=== PATIENT | female | born 1990 | race Caucasian/White ===

== ENCOUNTER 2018-09-04 15:56 | Emergency (ER) | payer MEDICAID ==
[~2018-09-04] VITALS: Ht 170.2 cm; Wt 165.0 kg
[~2018-09-04 15:56] MED LIST: ASPI81TA50 PO
[2018-09-04 16:45] LABS: ALBUMIN 3.8 g/dL (3.4-5.0); ANION GAP 8 mmol/L (5-15); CHLORIDE 108 mmol/L (98-107); CREATININE 0.98 mg/dL (0.55-1.02)
[2018-09-04 16:49] LABS: TROPONIN I < 0.015 ng/mL (0.000-0.045)
--- NOTE | 2018-09-04 16:54 | NUR ---
WELDER APPRENTICE ARC: PT TO ROOM FROM [facility]
[2018-09-04 16:59] LABS: BASOPHILS # (AUTO) 0.06 x10^3/uL (0-0.1); BASOPHILS % (AUTO) 1 % (0-1); EOSINOPHILS # (AUTO) 0.17 x10^3/uL (0-0.4); EOSINOPHILS % (AUTO) 2 % (1-7); LYMPHOCYTES # (AUTO) 2.08 x10^3/uL (1-3.4); LYMPHOCYTES % (AUTO) 30 % (22-44); MD NO; MEAN CORPUSCULAR VOLUME 88.2 fL (80-100); MEAN PLATELET VOLUME 8.4 fL (7.4-10.4); MONOCYTES # (AUTO) 0.98 x10^3/uL (0.2-0.8); MONOCYTES % (AUTO) 14 % (2-9); NEUTROPHILS # (AUTO) 3.55 x10^3/uL (1.8-6.8); NEUTROPHILS % (AUTO) 52 % (42-75); PLATELET COUNT 267 x10^3/uL (130-400); RED BLOOD COUNT 5.86 x10^6/uL (3.82-5.3); RED CELL DISTRIBUTION WIDTH 13.7 % (9.6-15.2)
--- NOTE | 2018-09-04 17:08 | NUR ---
FIRST CONTACT WITH PATIENT. 27 Y/O FEMALE PRESENTS TO ED WITH C/O COUGH CONGESTIONS X 1 WEEK. "I'VE BEEN SICK FOR ABOUT A WEEK. THE LAST TIME I WAS SICK LIKE THIS I WAS IN HEART FAILURE. I'VE HAD A LOT OF SURGERIES ON MY HEART AND CARDIAC HISTORY. I JUST WANT TO MAKE SURE. I HAVE SOME CONSTANT CP. IT STARTED YESTERDAY. THE PAIN GOT WORSE TODAY SO I CAME IN." NO ACUTE DISTRESS NOTED. NO C/O N/V/D, TRAUMA, SYNCOPE. PT PLACED ON CONT PULSE OX, NIBP, SPORTS CARTOONIST.
[2018-09-04] MEDS ORDERED: ALBUTEROL/IPRATROPIUM 2.5MG/0.5MG, 3 ML NPPB ONE (18:00)
[2018-09-04] MEDS ORDERED: ALBUTEROL/IPRATROPIUM 2.5MG/0.5MG, 3 ML ONE (18:01)
[2018-09-04 18:17] LABS: INTERNATIONAL NORMALIZED RATIO 1.09 (0.93-1.1); PROTHROMBIN TIME 11.4 Seconds (9.6-11.5)
[2018-09-04 18:31] VITALS: BP 123/85
--- NOTE | 2018-09-04 18:31 | NUR ---
PT RESTING ON GURNEY. PT FEEL BETTER AFTER NEBULIZER TREATMENT. NO ACUTE DISTRESS NOTED. VSS
--- NOTE | 2018-09-04 19:16 | NUR ---
BEDSIDE REPORT TO NORMA SIMON.
--- NOTE | 2018-09-04 19:20 | NUR ---
Patient/Caregiver given discharge instructions and they have confirmed that they understand the instructions. Patient ambulatory with steady gait.
== END 2018-09-04 19:21 | disposition home or self-care (01) ==
LOC: ED 19:15
DX: J06.9 Acute upper respiratory infection, unspecified (principal)
CPT/HCPCS: 36415; 71046; 80048; 82040; 84484; 85025; 85610; 93005; 94640; 99284; J7620

== ENCOUNTER 2019-01-28 20:32 | Emergency (ER) | payer MEDICAID ==
[~2019-01-28] VITALS: Ht 170.2 cm; Wt 169.4 kg
[2019-01-29 00:08] VITALS: BP 98/68
== END 2019-01-29 02:21 | disposition home or self-care (01) ==
LOC: ED 01-29 02:16
DX: R07.2 Precordial pain (principal)
CPT/HCPCS: 36415; 71046; 71275; 80048; 82040; 83880; 84484; 85025; 85379; 85610; 93005; 96374; 96375; 96376; 99284; J2270; J2405; Q9967

== ENCOUNTER 2019-05-11 16:59 | Emergency (ER) | payer MEDICAID ==
[~2019-05-11] VITALS: Ht 170.2 cm; Wt 171.0 kg
[~2019-05-11 16:59] MED LIST changes: +AMIT10TA PO; +ATOR10TA9 PO; +WARF1TAB74 PO
--- NOTE | 2019-05-11 18:50 | NUR ---
WORKERS COMPENSATION ANALYST: PT TO ROOM FROM LOBBY AT THIS TIME. NADN. AMBULATORY WITH STEADY GAIT
[2019-05-11 18:59] LABS: BASOPHILS # (AUTO) 0.05 x10^3/uL (0-0.1); BASOPHILS % (AUTO) 1 % (0-1); EOSINOPHILS # (AUTO) 0.19 x10^3/uL (0-0.4); EOSINOPHILS % (AUTO) 2 % (1-7); LYMPHOCYTES # (AUTO) 1.81 x10^3/uL (1-3.4); LYMPHOCYTES % (AUTO) 20 % (22-44); MD NO; MEAN CORPUSCULAR HEMOGLOBIN 30.3 pg (27.0-34.8); MEAN CORPUSCULAR HGB CONC 33.2 g/dL (32.4-35.8); MEAN CORPUSCULAR VOLUME 91.3 fL (80-100); MEAN PLATELET VOLUME 8.4 fL (7.4-10.4); MONOCYTES # (AUTO) 0.56 x10^3/uL (0.2-0.8); MONOCYTES % (AUTO) 6 % (2-9); NEUTROPHILS # (AUTO) 6.26 x10^3/uL (1.8-6.8); NEUTROPHILS % (AUTO) 71 % (42-75); PLATELET COUNT 288 x10^3/uL (130-400); RED BLOOD COUNT 5.48 x10^6/uL (3.82-5.3); RED CELL DISTRIBUTION WIDTH 13.3 % (9.6-15.2)
--- NOTE | 2019-05-11 19:03 | NUR ---
FULLY MONITORED. PACED.
[2019-05-11 19:10] LABS: ALANINE AMINOTRANSFERASE 64 U/L (12-78); ALBUMIN 3.5 g/dL (3.4-5.0); ANION GAP 8 mmol/L (5-15); CALCIUM 8.8 mg/dL (8.5-10.1); CHLORIDE 106 mmol/L (98-107); CREATININE 0.89 mg/dL (0.55-1.02)
[2019-05-11 19:14] LABS: ALKALINE PHOSPHATASE 64 U/L (45-117); BILIRUBIN,TOTAL 0.6 mg/dL (0.2-1.0); TROPONIN I < 0.015 ng/mL (0.000-0.045)
--- NOTE | 2019-05-11 19:18 | NUR ---
MECHANICAL VALVE AND PACER, ON CHR ANTICOAGULATION, COUMADIN.
[2019-05-11 19:22] LABS: INTERNATIONAL NORMALIZED RATIO 5.5 (0.93-1.1); PROTHROMBIN TIME 54.1 Seconds (9.6-11.5)
--- NOTE | 2019-05-11 19:35 | NUR ---
PT REQUESTING PAIN MEDS. ERP NOTIFIED.
[2019-05-11] MEDS ORDERED: HYDROcodone/APAP 5/325 TABLET ONE (19:45)
[2019-05-11] MEDS ORDERED: HYDROcodone/APAP 5/325 TABLET PO ONE (20:00)
[2019-05-11 20:03] VITALS: BP 113/60
== END 2019-05-11 20:07 | disposition home or self-care (01) ==
LOC: ED 20:00
DX: R07.89 Other chest pain (principal); Z79.01 Long term (current) use of anticoagulants
CPT/HCPCS: 36415; 71046; 80053; 83880; 84443; 84484; 85025; 85610; 85730; 93005; 99284

== ENCOUNTER 2019-05-13 20:06 | Observation (INO) | payer MEDICAID ==
[~2019-05-13] VITALS: Ht 170.2 cm; Wt 170.0 kg
[2019-05-13 21:46] LABS: BASOPHILS # (AUTO) 0.13 x10^3/uL (0-0.1); BASOPHILS % (AUTO) 1 % (0-1); EOSINOPHILS % (AUTO) 3 % (1-7); LYMPHOCYTES # (AUTO) 2.66 x10^3/uL (1-3.4); LYMPHOCYTES % (AUTO) 28 % (22-44); MD NO; MEAN CORPUSCULAR HGB CONC 34.3 g/dL (32.4-35.8); MEAN CORPUSCULAR VOLUME 90.3 fL (80-100); MEAN PLATELET VOLUME 8.2 fL (7.4-10.4); MONOCYTES # (AUTO) 0.68 x10^3/uL (0.2-0.8); MONOCYTES % (AUTO) 7 % (2-9); NEUTROPHILS # (AUTO) 5.74 x10^3/uL (1.8-6.8); NEUTROPHILS % (AUTO) 60 % (42-75); PLATELET COUNT 284 x10^3/uL (130-400); RED CELL DISTRIBUTION WIDTH 13.1 % (9.6-15.2)
[2019-05-13 21:55] LABS: INTERNATIONAL NORMALIZED RATIO 1.43 (0.93-1.1); PROTHROMBIN TIME 14.8 Seconds (9.6-11.5)
[2019-05-13 21:59] LABS: ALBUMIN 3.3 g/dL (3.4-5.0); ANION GAP 5 mmol/L (5-15); CALCIUM 9.3 mg/dL (8.5-10.1); CHLORIDE 109 mmol/L (98-107)
[2019-05-13 22:04] LABS: TROPONIN I < 0.015 ng/mL (0.000-0.045)
[2019-05-13] MEDS ORDERED: OMNIPAQUE 350 MG/ML, 100ML BOTTLE ONE (22:43)
[2019-05-13] MEDS ORDERED: MORPHINE SULFATE 4 MG/ML, 1ML ONE (23:51)
[2019-05-13] MEDS ORDERED: ONDANSETRON 2MG/ML, 2ML ONE (23:52)
[2019-05-14] MEDS ORDERED: MORPHINE SULFATE 4 MG/ML, 1ML IVPush PRN
[2019-05-14] MEDS ORDERED: ONDANSETRON 2MG/ML, 2ML IVPush PRN
[2019-05-14] MEDS ORDERED: WARF7.5T46 PO (00:01)
[2019-05-14] MEDS ORDERED: IBUPROFEN 600 MG TABLET PO PRN (00:30)
[2019-05-14] MEDS: AMITRIPTYLINE 10 MG TABLET PO SCH ×2 (01:47→22:00)
[2019-05-14] MEDS: ACETAMINOPHEN 325 MG TABLET PO PRN ×3 (01:49→19:09)
[2019-05-14 01:54] VITALS: BP 118/82
[2019-05-14] MEDS ORDERED: KETOROLAC 30 MG/1 ML IVPush ONE (03:00)
[2019-05-14 03:46] LABS: INTERNATIONAL NORMALIZED RATIO 1.3 (0.93-1.1); PROTHROMBIN TIME 13.5 Seconds (9.6-11.5)
[2019-05-14 04:02] LABS: TROPONIN I < 0.015 ng/mL (0.000-0.045)
[2019-05-14 06:36] VITALS: BP 103/66
[2019-05-14] MEDS ORDERED: TRAM50TA2 PO (12:13)
[2019-05-14 12:14] VITALS: BP 104/68
[2019-05-14] MEDS ORDERED: WARFARIN 7.5 MG TABLET PO-COUM ONE (18:00)
[2019-05-14 18:47] VITALS: BP 170/107
[2019-05-14 18:52] VITALS: BP 145/100
[2019-05-14 20:45] VITALS: BP 170/95
[2019-05-14] MEDS: LIDODERM 5% PATCH TD SCH (21:00)
[2019-05-15 01:33] VITALS: BP 114/68
[2019-05-15 07:46] LABS: INTERNATIONAL NORMALIZED RATIO 1.18 (0.93-1.1); PROTHROMBIN TIME 12.3 Seconds (9.6-11.5)
[2019-05-15 08:15] VITALS: BP 118/84
[2019-05-15] MEDS: POLYETHYLENE GLYCOL 17 GM PACKET PO SCH (10:23)
[2019-05-15] MEDS ORDERED: BISACODYL 5 MG EC TABLET PO PRN (10:30)
[2019-05-15] MEDS ORDERED: SENNA/DOCUSATE TABLET PO PRN (10:30)
[2019-05-15] MEDS: ONDANSETRON ODT 4 MG PO PRN ×2 (11:06→20:46)
[2019-05-15 12:55] VITALS: BP 140/97
[2019-05-15] MEDS ORDERED: BUTALB/APAP/CAFFEINE 50MG/325MG/40MG PO ONE (18:00)
[2019-05-15] MEDS ORDERED: WARFARIN 7.5 MG TABLET PO-COUM ONE (18:00)
[2019-05-15 18:47] VITALS: BP 137/99
[2019-05-15] MEDS: AMITRIPTYLINE 10 MG TABLET PO SCH (20:02)
[2019-05-15] MEDS: LIDODERM 5% PATCH TD SCH (20:03)
[2019-05-16 02:25] VITALS: BP 106/70
[2019-05-16 08:28] VITALS: BP 127/91
[2019-05-16] MEDS ORDERED: REGADENOSON 0.4 MG/5 ML SYRINGE ONE (08:42)
[2019-05-16] MEDS: ONDANSETRON ODT 4 MG PO PRN (11:36)
[2019-05-16 11:43] VITALS: BP 146/102
[2019-05-16 12:24] VITALS: BP 132/96
[2019-05-16] MEDS: POLYETHYLENE GLYCOL 17 GM PACKET PO SCH (12:37)
[2019-05-16 12:55] LABS: INTERNATIONAL NORMALIZED RATIO 2.01 (0.93-1.1); PROTHROMBIN TIME 20.5 Seconds (9.6-11.5)
[2019-05-16] MEDS ORDERED: SPIRONOLACTONE 25 MG TABLET PO SCH (14:00)
[2019-05-16] MEDS ORDERED: HYDROcodone/APAP 5/325 TABLET PO PRN (14:30)
[2019-05-16] MEDS ORDERED: DULOXETINE 20 MG CAPSULE.DR PO SCH (14:30)
[2019-05-16] MEDS ORDERED: PROCHLORPERAZINE 5 MG/ML, 2ML IM PRN (14:30)
[2019-05-16] MEDS: ACETAMINOPHEN 325 MG TABLET PO PRN (15:52)
[2019-05-16] MEDS ORDERED: LISI5TAB7 PO (17:07)
[2019-05-16] MEDS ORDERED: CARV3.1212 PO (17:07)
[2019-05-16] MEDS ORDERED: WARFARIN 7.5 MG TABLET PO-COUM ONE (18:00)
[2019-05-16] MEDS ORDERED: CARVEDILOL 3.125 MG TABLET PO SCH (18:00)
[2019-05-16] MEDS ORDERED: FLU VACC QS2019-20 36MOS UP/PF 0.5 ML IM-VACC ONE (18:00)
[2019-05-17] MEDS ORDERED: LISINOPRIL 5 MG TABLET PO SCH (09:00)
== END 2019-05-16 18:40 | disposition home or self-care (01) ==
LOC: ED 23:59 → INTOOBSV 05-14 00:25 → EDIP 05-14 00:25 → 5SO 05-14 00:32
PROVIDERS: ADMIT Student in an Organized Health Care Education/Training Program; ATTEND Student in an Organized Health Care Education/Training Program
DX: R07.89 Other chest pain (principal); I50.23 Acute on chronic systolic (congestive) heart failure; I42.8 Other cardiomyopathies; I50.22 Chronic systolic (congestive) heart failure; E66.9 Obesity, unspecified; Q23.0 Congenital stenosis of aortic valve; F32.9 Major depressive disorder, single episode, unspecified; F41.9 Anxiety disorder, unspecified; I44.7 Left bundle-branch block, unspecified; Z79.01 Long term (current) use of anticoagulants; I42.9 Cardiomyopathy, unspecified; Z87.891 Personal history of nicotine dependence; Z95.0 Presence of cardiac pacemaker; Z95.2 Presence of prosthetic heart valve; Z68.43 Body mass index [BMI] 50.0-59.9, adult; Z23 Encounter for immunization; Z79.899 Other long term (current) drug therapy; Z79.82 Long term (current) use of aspirin
CPT/HCPCS: 36415; 71275; 78452; 80048; 82040; 84484; 85025; 85610; 90471; 90686; 93005; 93017; 96372; 96374; 96375; 99285; A9502; C8929; C9898; G0378; J0780; J1885; J2270; J2405; J2785; Q0162; Q9957; Q9967

== ENCOUNTER 2019-12-01 05:50 | Emergency (ER) | payer MEDICAID ==
[~2019-12-01] VITALS: Ht 170.2 cm; Wt 157.0 kg
[~2019-12-01 05:50] MED LIST changes: +CARV3.1212 PO; +LISI5TAB7 PO; +TRAM50TA2 PO; +WARF7.5T46 PO
[2019-12-01] MEDS ORDERED: OMEP-110 PO (06:07)
[2019-12-01] MEDS ORDERED: DULO60CA56 PO (06:07)
[2019-12-01] MEDS ORDERED: CARV3.122 PO (06:11)
[2019-12-01] MEDS ORDERED: GABA600T7 PO (06:11)
[2019-12-01] MEDS ORDERED: LISI2.5T PO (06:11)
--- NOTE | 2019-12-01 06:11 | NUR ---
pt bib remsa for CP and palpations. pt reports palpations beginning last night and says that "sometimes happen and go away but today they didnt" then it " turned into chest pain this morning about 5 am and it woke me up." PULSES 2+, GROSS NEURO INTACT, ANOx4, MAEx4 BUT STATES SHE FEELS FATIGUED, P/W/D, NAD, RESP WNL, VSS, WCTM. call light on lap 4 mg zofran and 100 mcg fentanyl kerrie ESPINOZA MD AT FOR EVAL AND POC
[2019-12-01] MEDS ORDERED: ASPIRIN 81 MG TABLET CHEW ONE (06:26)
[2019-12-01] MEDS ORDERED: MORPHINE SULFATE 4 MG/ML, 1ML ONE ×2 (06:26→07:36)
[2019-12-01] MEDS ORDERED: ONDANSETRON 2MG/ML, 2ML ONE (06:26)
[2019-12-01] MEDS: MORPHINE SULFATE 4 MG/ML, 1ML IVPush PRN ×2 (06:29→07:39)
[2019-12-01] MEDS ORDERED: ONDANSETRON 2MG/ML, 2ML IVPush ONE (06:30)
[2019-12-01] MEDS ORDERED: ASPIRIN 81 MG TABLET CHEW PO ONE (06:30)
[2019-12-01 06:45] LABS: BASOPHILS # (AUTO) 0.12 x10^3/uL (0-0.1); BASOPHILS % (AUTO) 2 % (0-1); EOSINOPHILS # (AUTO) 0.48 x10^3/uL (0-0.4); EOSINOPHILS % (AUTO) 6 % (1-7); LYMPHOCYTES # (AUTO) 1.97 x10^3/uL (1-3.4); LYMPHOCYTES % (AUTO) 25 % (22-44); MD NO; MEAN CORPUSCULAR HEMOGLOBIN 30.4 pg (27.0-34.8); MEAN CORPUSCULAR HGB CONC 33.5 g/dL (32.4-35.8); MEAN CORPUSCULAR VOLUME 90.8 fL (80-100); MEAN PLATELET VOLUME 8.4 fL (7.4-10.4); MONOCYTES # (AUTO) 0.73 x10^3/uL (0.2-0.8); MONOCYTES % (AUTO) 9 % (2-9); NEUTROPHILS # (AUTO) 4.44 x10^3/uL (1.8-6.8); NEUTROPHILS % (AUTO) 57 % (42-75); PLATELET COUNT 244 x10^3/uL (130-400); RED BLOOD COUNT 4.92 x10^6/uL (3.82-5.3); RED CELL DISTRIBUTION WIDTH 13.5 % (9.6-15.2)
--- NOTE | 2019-12-01 06:48 | NUR ---
pt resting in gurney, given warm blankets for comfort, call light on lap, NAD, RESP WNL, ABC intact, P/W/D, medicated per AUG. waiting for labs and rads results. WCTM.
[2019-12-01 06:54] LABS: INTERNATIONAL NORMALIZED RATIO 1.21 (0.93-1.1); PROTHROMBIN TIME 12.9 Seconds (9.6-11.5)
[2019-12-01 06:56] LABS: ALANINE AMINOTRANSFERASE 23 U/L (12-78); ANION GAP 9 mmol/L (5-15); CALCIUM 8.1 mg/dL (8.5-10.1); CHLORIDE 109 mmol/L (98-107); CREATININE 0.82 mg/dL (0.55-1.02)
--- NOTE | 2019-12-01 06:58 | NUR ---
Bedside report to Rohit RN, pt care transferred at this time.
--- NOTE | 2019-12-01 06:59 | NUR ---
Bedside report to Rohit RN, pt care transferred at this time.
[2019-12-01 07:01] LABS: ALKALINE PHOSPHATASE 58 U/L (45-117); BILIRUBIN,TOTAL 0.8 mg/dL (0.2-1.0); TOTAL PROTEIN 6.9 g/dL (6.4-8.2); TROPONIN I < 0.015 ng/mL (0.000-0.045)
--- NOTE | 2019-12-01 07:42 | NUR ---
PT MEDICATED WITH ORDERED MEDS FOR PAIN. VSS AT THIS TIME.
--- NOTE | 2019-12-01 08:57 | NUR ---
PT RETURNING TO ROOM FROM CTA.
[2019-12-01] MEDS ORDERED: OMNIPAQUE 350 MG/ML, 100ML BOTTLE ONE (09:02)
[2019-12-01] MEDS ORDERED: KETOROLAC 30 MG/1 ML IVPush ONE (10:30)
[2019-12-01] MEDS ORDERED: KETOROLAC 30 MG/1 ML ONE (10:35)
--- NOTE | 2019-12-01 10:44 | NUR ---
pt medicated for left sided chest pain with ordered med. will continue to monitor. pt resting calmly in bed, call light within reach.
[2019-12-01 10:48] LABS: TROPONIN I < 0.015 ng/mL (0.000-0.045)
--- NOTE | 2019-12-01 11:21 | NUR ---
pt resting calmly in bed. no stated complaints at this time, all test results back. pt up for recheck.
[2019-12-01 11:56] VITALS: BP 123/82
== END 2019-12-01 11:59 | disposition home or self-care (01) ==
LOC: ED 06:20
DX: R07.2 Precordial pain (principal); R00.2 Palpitations; Z95.0 Presence of cardiac pacemaker
CPT/HCPCS: 36415; 71045; 71275; 80053; 83880; 84484; 84703; 85025; 85610; 93005; 96374; 96375; 96376; 99285; J1885; J2270; Q9967

== ENCOUNTER 2019-12-04 09:31 | Emergency (ER) | payer MEDICAID ==
[~2019-12-04] VITALS: Ht 170.2 cm; Wt 165.0 kg
[~2019-12-04 09:31] MED LIST changes: +CARV3.122 PO; +DULO60CA56 PO; +GABA600T7 PO; +LISI2.5T PO; +OMEP-110 PO
--- NOTE | 2019-12-04 09:38 | NUR ---
THIS RN PRESENT DURING EKG PROCEDURE. PT TOLERATED WITH NO COMPLICATIONS.
[2019-12-04] MEDS ORDERED: OXYcodone 5 MG/5 ML ORAL.SOL UDC PO ONE (10:00)
--- NOTE | 2019-12-04 10:00 | NUR ---
pt has co of shoulder abdomen and chest pain, was here recently for same co, pt was given medications and had no relief. tender to palpiation. pt not in distress. resp even and unlabored. denies cough
[2019-12-04] MEDS ORDERED: OXYcodone 5 MG/5 ML ORAL.SOL UDC ONE (10:04)
--- NOTE | 2019-12-04 10:15 | NUR ---
medicated for pain
[2019-12-04 10:16] LABS: BASOPHILS # (AUTO) 0.05 x10^3/uL (0-0.1); BASOPHILS % (AUTO) 1 % (0-1); EOSINOPHILS # (AUTO) 0.49 x10^3/uL (0-0.4); EOSINOPHILS % (AUTO) 7 % (1-7); LYMPHOCYTES # (AUTO) 1.64 x10^3/uL (1-3.4); LYMPHOCYTES % (AUTO) 25 % (22-44); MD NO; MEAN CORPUSCULAR HEMOGLOBIN 30.3 pg (27.0-34.8); MEAN CORPUSCULAR HGB CONC 33.4 g/dL (32.4-35.8); MEAN CORPUSCULAR VOLUME 90.8 fL (80-100); MEAN PLATELET VOLUME 8.2 fL (7.4-10.4); MONOCYTES # (AUTO) 0.55 x10^3/uL (0.2-0.8); MONOCYTES % (AUTO) 8 % (2-9); NEUTROPHILS # (AUTO) 3.92 x10^3/uL (1.8-6.8); NEUTROPHILS % (AUTO) 59 % (42-75); PLATELET COUNT 227 x10^3/uL (130-400); RED BLOOD COUNT 4.83 x10^6/uL (3.82-5.3)
[2019-12-04 10:25] LABS: INTERNATIONAL NORMALIZED RATIO 1.17 (0.93-1.1); PROTHROMBIN TIME 12.4 Seconds (9.6-11.5)
[2019-12-04 10:27] LABS: ALANINE AMINOTRANSFERASE 22 U/L (12-78); ANION GAP 8 mmol/L (5-15); CALCIUM 8.3 mg/dL (8.5-10.1); CHLORIDE 113 mmol/L (98-107); CREATININE 0.82 mg/dL (0.55-1.02)
[2019-12-04 10:32] LABS: ALKALINE PHOSPHATASE 59 U/L (45-117); BILIRUBIN,TOTAL 0.8 mg/dL (0.2-1.0); TOTAL PROTEIN 6.8 g/dL (6.4-8.2); TROPONIN I < 0.015 ng/mL (0.000-0.045)
--- NOTE | 2019-12-04 10:53 | NUR ---
pt in imaging
--- NOTE | 2019-12-04 11:04 | NUR ---
PT BACK IN ROOM. VSS. STATES PAIN IS BETTER AFTER MEDICATIONS
[2019-12-04] MEDS ORDERED: WARFARIN 10 MG TABLET PO-COUM ONE (11:30)
--- NOTE | 2019-12-04 12:00 | NUR ---
PLAN FOR DC. ORDERED MEDS FROM PHARMACY
--- NOTE | 2019-12-04 12:29 | NUR ---
PHARMACY TO MAKE UP LOVENOX INJECTION. NOT SUPPLIED IN [employer]
[2019-12-04] MEDS ORDERED: ENOXAPARIN 80 MG/0.8 ML SQ ONE (12:30)
[2019-12-04 12:39] VITALS: BP 118/69
--- NOTE | 2019-12-04 12:46 | NUR ---
MEDICATED PER ORDERS. Patient/Caregiver given discharge instructions and they have confirmed that they understand the instructions. Patient ambulatory with steady gait.
== END 2019-12-04 12:53 | disposition home or self-care (01) ==
LOC: ED 10:20
DX: R07.89 Other chest pain (principal); R89.8 Other abnormal findings in specimens from other organs, systems and tissues; R06.02 Shortness of breath; R11.0 Nausea; R94.31 Abnormal electrocardiogram [ECG] [EKG]; Z95.0 Presence of cardiac pacemaker
CPT/HCPCS: 36415; 74022; 80053; 83690; 84484; 84703; 85025; 85610; 93005; 96372; 99285; J1650

== ENCOUNTER 2019-12-07 06:58 | Observation (INO) | payer MEDICAID ==
[~2019-12-07] VITALS: Ht 170.2 cm; Wt 165.0 kg
--- NOTE | 2019-12-07 07:06 | NUR ---
THIS RN PRESENT DURING EKG PROCEDURE. PT TOLERATED WITH NO COMPLICATIONS
--- NOTE | 2019-12-07 07:20 | NUR ---
THIS IS A 29 YO F W/ C/O SHARP EPIGASTRIC/ STERNAL CP X1 WEEK. PT REPORTS SHE HAS HAD A SIMILAR PAIN SINCE APRIL WHEN SHE WAS ADMITTED, HAS NOT FOLLOWED UP W/ CARDIOLOGY SINCE APRIL. PT REPORT HX OF PACEMAKER, AORTIC STENT AND CHF. PT REPORTS PAIN WORSE WHILE LAYING DOWN. PT ALSO REPORTS NEW ONSET OF LEFT LEG EDEMA. PT AMBULATED TO THE ROOM W/ A STEADY GAIT. PT CONNECTED TO ALL MONITORING, VSS. VPACED ON THE MONITOR. NADN. CALL LIGHT IN REACH. DINO DELGADO AT BEDSIDE FOR EVAL.
[2019-12-07] MEDS ORDERED: ASPIRIN 81 MG TABLET CHEW PO ONE (07:30)
[2019-12-07] MEDS ORDERED: SODIUM CHLORIDE FLUSH 10ML SYR IVF ONE (07:30)
[2019-12-07] MEDS ORDERED: ONDANSETRON 2MG/ML, 2ML IVPush ONE (07:30)
[2019-12-07] MEDS ORDERED: MORPHINE SULFATE 4 MG/ML, 1ML ONE ×2 (07:31→09:22)
[2019-12-07] MEDS ORDERED: ONDANSETRON 2MG/ML, 2ML ONE (07:31)
[2019-12-07] MEDS: MORPHINE SULFATE 4 MG/ML, 1ML IVPush PRN ×2 (07:50→09:24)
[2019-12-07] MEDS ORDERED: ASPIRIN 81 MG TABLET CHEW ONE (07:57)
--- NOTE | 2019-12-07 08:01 | NUR ---
PIV STARTED, LABS DRAWN. PT MEDICATED PER EMAR. VSS. PT AMBULATED TO THE BR W/ A STEADY GAIT. URINE CUP PROVIDED.
--- NOTE | 2019-12-07 08:10 | NUR ---
US IN ROOM.
[2019-12-07 08:14] LABS: BASOPHILS # (AUTO) 0.04 x10^3/uL (0-0.1); BASOPHILS % (AUTO) 1 % (0-1); EOSINOPHILS # (AUTO) 0.64 x10^3/uL (0-0.4); EOSINOPHILS % (AUTO) 11 % (1-7); LYMPHOCYTES # (AUTO) 1.63 x10^3/uL (1-3.4); LYMPHOCYTES % (AUTO) 28 % (22-44); MD NO; MEAN CORPUSCULAR HEMOGLOBIN 30.5 pg (27.0-34.8); MEAN CORPUSCULAR HGB CONC 33.7 g/dL (32.4-35.8); MEAN CORPUSCULAR VOLUME 90.6 fL (80-100); MEAN PLATELET VOLUME 8.9 fL (7.4-10.4); MONOCYTES # (AUTO) 0.49 x10^3/uL (0.2-0.8); MONOCYTES % (AUTO) 8 % (2-9); NEUTROPHILS # (AUTO) 2.99 x10^3/uL (1.8-6.8); NEUTROPHILS % (AUTO) 52 % (42-75); PLATELET COUNT 215 x10^3/uL (130-400); RED BLOOD COUNT 4.83 x10^6/uL (3.82-5.3); RED CELL DISTRIBUTION WIDTH 13.2 % (9.6-15.2)
[2019-12-07 08:16] LABS: INTERNATIONAL NORMALIZED RATIO 1.75 (0.93-1.1); PROTHROMBIN TIME 18.7 Seconds (9.6-11.5)
[2019-12-07 08:20] LABS: ALBUMIN 3.2 g/dL (3.4-5.0); ANION GAP 4 mmol/L (5-15); CHLORIDE 108 mmol/L (98-107); CREATININE 0.99 mg/dL (0.55-1.02)
[2019-12-07 08:24] LABS: TROPONIN I < 0.015 ng/mL (0.000-0.045)
--- NOTE | 2019-12-07 09:16 | NUR ---
PT AMBULATED TO THE BR W/ A STEADY GAIT. RETURNED TO ROOM, CONNECTED TO MONITORING.
--- NOTE | 2019-12-07 09:27 | NUR ---
PT REPORTS PAIN NOW 01/31. MEDICATED PER EMAR. PT RESTING ON [employer] W/ CALL LIGHT IN REACH. DENIES FURTHER NEEDS AT THIS TIME.
--- NOTE | 2019-12-07 09:30 | NUR ---
ADMITTING PROVIDER IN ROOM.
--- NOTE | 2019-12-07 10:23 | NUR ---
REPORT GIVEN TO CIPRIANO GREEN. PT IS READY FOR TRANSPORT AT THIS TIME.
[2019-12-07 10:48] VITALS: BP 112/74
[2019-12-07] MEDS ORDERED: POLYETHYLENE GLYCOL 17 GM PACKET PO PRN (11:00)
[2019-12-07] MEDS ORDERED: METHOCARBAMOL 500 MG TABLET PO PRN (11:00)
[2019-12-07] MEDS ORDERED: NITROGLYCERIN 0.4 MG BOTTLE (25 TABS) SL PRN (11:00)
[2019-12-07] MEDS ORDERED: DOCUSATE 100 MG CAPSULE PO PRN (11:00)
[2019-12-07] MEDS ORDERED: LACTATED RINGERS 1,000 ML IV SCH (11:00)
[2019-12-07] MEDS ORDERED: NITROGLYCERIN 0.4 MG/SPRAY SL PRN (11:00)
[2019-12-07] MEDS ORDERED: ONDANSETRON 2MG/ML, 2ML IVPush PRN (11:00)
[2019-12-07] MEDS ORDERED: ACETAMINOPHEN 325 MG TABLET PO PRN (11:00)
[2019-12-07 12:32] LABS: TROPONIN I < 0.015 ng/mL (0.000-0.045)
[2019-12-07 12:48] VITALS: BP 108/73
[2019-12-07] MEDS: HYDROcodone/APAP 5/325 TABLET PO PRN ×3 (12:57→20:24)
[2019-12-07] MEDS ORDERED: FUROSEMIDE 20 MG/2 ML IV ONE (15:30)
[2019-12-07] MEDS: GABAPENTIN 300 MG CAPSULE PO SCH ×2 (16:19→20:23)
[2019-12-07] MEDS ORDERED: WARFARIN 7.5 MG TABLET PO-COUM ONE (17:23)
[2019-12-07] MEDS ORDERED: WARFARIN 2.5 MG TABLET PO-COUM ONE (17:24)
[2019-12-07] MEDS: CARVEDILOL 3.125 MG TABLET PO SCH (17:27)
[2019-12-07] MEDS ORDERED: WARFARIN 10 MG TABLET PO-COUM ONE (18:00)
[2019-12-07] MEDS: morphine SULFATE 10 MG/ML, 1ML IVPush PRN ×2 (18:23→22:22)
[2019-12-07 19:52] VITALS: BP 118/82
[2019-12-07] MEDS ORDERED: ATORVASTATIN 40 MG TABLET PO SCH (21:00)
[2019-12-08 00:02] VITALS: BP 104/73
[2019-12-08] MEDS: morphine SULFATE 10 MG/ML, 1ML IVPush PRN ×4 (03:29→14:04)
[2019-12-08 03:32] VITALS: BP 104/71
[2019-12-08 05:40] LABS: ANION GAP 4 mmol/L (5-15); CALCIUM 8.4 mg/dL (8.5-10.1); CHLORIDE 107 mmol/L (98-107)
[2019-12-08 05:42] LABS: CREATININE 0.92 mg/dL (0.55-1.02)
[2019-12-08 05:45] LABS: INTERNATIONAL NORMALIZED RATIO 1.49 (0.93-1.1); PROTHROMBIN TIME 15.9 Seconds (9.6-11.5)
[2019-12-08] MEDS ORDERED: OMEPRAZOLE 20 MG CAPSULE.DR PO SCH (06:00)
[2019-12-08 06:13] VITALS: BP 105/70
[2019-12-08] MEDS: CARVEDILOL 3.125 MG TABLET PO SCH (06:13)
[2019-12-08] MEDS ORDERED: POTASSIUM CHLORIDE 20 MEQ TAB.ER.PRT PO ONE (06:30)
[2019-12-08 07:15] VITALS: BP 102/71
[2019-12-08] MEDS ORDERED: REGADENOSON 0.4 MG/5 ML SYRINGE ONE (07:53)
[2019-12-08] MEDS ORDERED: DULOXETINE 30 MG CAPSULE.DR PO SCH (09:00)
[2019-12-08] MEDS ORDERED: LISINOPRIL 5 MG TABLET PO SCH (09:00)
[2019-12-08] MEDS ORDERED: WARFARIN 7.5 MG TABLET PO-COUM SCH (09:00)
[2019-12-08 10:20] VITALS: BP 120/87
[2019-12-08] MEDS: GABAPENTIN 300 MG CAPSULE PO SCH (10:21)
[2019-12-08 13:15] VITALS: BP 112/79
[2019-12-08] MEDS ORDERED: GABA300C PO (13:40)
[2019-12-08] MEDS ORDERED: WARFARIN 3 MG TABLET PO-COUM ONE (18:00)
== END 2019-12-08 16:09 | disposition home or self-care (01) ==
LOC: ED 08:32 → 5SO 08:58 → INTOOBSV 08:58 → DCLOUNGE 12-08 16:00
PROVIDERS: ADMIT Family Medicine; ATTEND Family Medicine
DX: R07.89 Other chest pain (principal); G89.29 Other chronic pain; I11.0 Hypertensive heart disease with heart failure; I50.9 Heart failure, unspecified; K21.9 Gastro-esophageal reflux disease without esophagitis; E66.01 Morbid (severe) obesity due to excess calories; I25.5 Ischemic cardiomyopathy; I25.2 Old myocardial infarction; I35.0 Nonrheumatic aortic (valve) stenosis; Z87.891 Personal history of nicotine dependence; Z91.19 Patient's noncompliance with other medical treatment and regimen; Z95.2 Presence of prosthetic heart valve; Z95.0 Presence of cardiac pacemaker; Z79.899 Other long term (current) drug therapy
CPT/HCPCS: 36415; 71045; 78452; 80048; 82040; 83880; 84484; 85025; 85610; 93005; 93017; 93971; 96374; 96375; 96376; 99285; A9502; G0378; J1940; J2270; J2405; J2785; J7120

== ENCOUNTER → 2020-01-07 | Outpatient (CLI) | payer MEDICAID ==
[~2020-01-07] MED LIST changes: +GABA300C PO
== END | disposition home or self-care (01) ==
LOC: CVU 15:12
PROVIDERS: ATTEND Internal Medicine Cardiovascular Disease
DX: I08.1 Rheumatic disorders of both mitral and tricuspid valves (principal); I44.7 Left bundle-branch block, unspecified; Z95.1 Presence of aortocoronary bypass graft
CPT/HCPCS: 93306

== ENCOUNTER 2020-01-19 21:28 | Emergency (ER) | payer MEDICAID ==
[2020-01-19] MEDS ORDERED: MORPHINE SULFATE 4 MG/ML, 1ML ONE ×2 (21:47→23:10)
[2020-01-19] MEDS ORDERED: ONDANSETRON 2MG/ML, 2ML ONE (21:47)
[2020-01-19] MEDS ORDERED: ONDANSETRON 2MG/ML, 2ML IVPush ONE (22:00)
[2020-01-19] MEDS ORDERED: PLEASE ENTER HEIGHT AND WEIGHT MC SCH (22:00)
[2020-01-19] MEDS ORDERED: SODIUM CHLORIDE FLUSH 10ML SYR IVF ONE (22:00)
[2020-01-19] MEDS: MORPHINE SULFATE 4 MG/ML, 1ML IVPush PRN ×2 (22:06→23:12)
[2020-01-19 22:10] LABS: BASOPHILS # (AUTO) 0.03 x10^3/uL (0-0.1); BASOPHILS % (AUTO) 0 % (0-1); EOSINOPHILS # (AUTO) 0.41 x10^3/uL (0-0.4); EOSINOPHILS % (AUTO) 4 % (1-7); LYMPHOCYTES # (AUTO) 2.26 x10^3/uL (1-3.4); LYMPHOCYTES % (AUTO) 23 % (22-44); MD NO; MEAN CORPUSCULAR HEMOGLOBIN 30.4 pg (27.0-34.8); MEAN CORPUSCULAR HGB CONC 33.6 g/dL (32.4-35.8); MEAN CORPUSCULAR VOLUME 90.4 fL (80-100); MEAN PLATELET VOLUME 8.7 fL (7.4-10.4); MONOCYTES # (AUTO) 0.63 x10^3/uL (0.2-0.8); MONOCYTES % (AUTO) 6 % (2-9); NEUTROPHILS # (AUTO) 6.56 x10^3/uL (1.8-6.8); NEUTROPHILS % (AUTO) 66 % (42-75); PLATELET COUNT 291 x10^3/uL (130-400); RED BLOOD COUNT 5.17 x10^6/uL (3.82-5.3); RED CELL DISTRIBUTION WIDTH 13.5 % (9.6-15.2)
[2020-01-19 22:22] LABS: ALANINE AMINOTRANSFERASE 29 U/L (12-78); ALBUMIN 2.9 g/dL (3.4-5.0); ANION GAP 7 mmol/L (5-15); CALCIUM 8.3 mg/dL (8.5-10.1); CHLORIDE 107 mmol/L (98-107)
[2020-01-19 22:26] LABS: ALKALINE PHOSPHATASE 58 U/L (45-117); BILIRUBIN,TOTAL 0.5 mg/dL (0.2-1.0); TOTAL PROTEIN 7.6 g/dL (6.4-8.2)
[2020-01-19 22:30] LABS: INTERNATIONAL NORMALIZED RATIO 5.77 (0.93-1.1); PROTHROMBIN TIME 62.2 Seconds (9.6-11.5)
[2020-01-19 22:55] LABS: MICROSCOPIC NOT IND
[2020-01-19] MEDS ORDERED: OMNIPAQUE 350 MG/ML, 100ML BOTTLE ONE (22:57)
--- NOTE | 2020-01-19 23:03 | NUR ---
PT RETURNED BACK FROM CT. PT C/O TENDERNESS ABOVE IV SITE, ICE APPLIED. WILL CONTINUE TO MONITOR.
[2020-01-19 23:14] VITALS: BP 100/73
[2020-01-19] MEDS ORDERED: MAALOX/HYOSCYAMINE/LIDOCAINE 45 ML BTL ONE (23:45)
[2020-01-20] MEDS ORDERED: MAALOX/HYOSCYAMINE/LIDOCAINE 45 ML BTL PO ONE
== END 2020-01-19 23:49 ==
LOC: ED 23:00
DX: K29.00 Acute gastritis without bleeding (principal); R10.12 Left upper quadrant pain; K59.00 Constipation, unspecified; R94.31 Abnormal electrocardiogram [ECG] [EKG]; I11.0 Hypertensive heart disease with heart failure; I50.9 Heart failure, unspecified; E66.9 Obesity, unspecified; Z79.01 Long term (current) use of anticoagulants
CPT/HCPCS: 36415; 74177; 80053; 81003; 83690; 84703; 85025; 85610; 93005; 96374; 96375; 96376; 99285; J2270; J2405; Q9967

== ENCOUNTER 2020-01-26 17:24 | Inpatient (IN) | payer MEDICAID ==
[~2020-01-26] VITALS: Ht 170.2 cm; Wt 166.7 kg
--- NOTE | 2020-01-26 17:52 | NUR ---
BREAK RN: PT TO ED AFTER BUSH/BLURRED VISION STARTING YESTERDAY AND TODAY FELL AND HIT HEAD @1500. PT C/O SEVERE BUSH "WORST EVER". RIGHT PUPIL SLIGHTLY DILATED AND SLUGGISH TO RESPOND, NEURO OTHERWISE INTACT, PT AOX4, PT STATES SLURRED/LISP SPEECH IS HER BASELINE. PT ON COUMADIN AFTER AORTIC VALVE REPAIR. PT PLACED ON MONITOR, CALL LIGHT WITHIN REACH.
--- NOTE | 2020-01-26 17:55 | NUR ---
PT TO CT AT THIS TIME
[2020-01-26] MEDS ORDERED: DIPHENHYDRAMINE 50 MG/ML, 1ML IVPush ONE (18:00)
[2020-01-26] MEDS ORDERED: METOCLOPRAMIDE 5 MG/ML, 2ML ONE (18:21)
[2020-01-26] MEDS ORDERED: DIPHENHYDRAMINE 50 MG/ML, 1ML ONE (18:21)
[2020-01-26 18:23] LABS: BASOPHILS # (AUTO) 0.04 x10^3/uL (0-0.1); BASOPHILS % (AUTO) 0 % (0-1); EOSINOPHILS # (AUTO) 0.19 x10^3/uL (0-0.4); EOSINOPHILS % (AUTO) 2 % (1-7); LYMPHOCYTES # (AUTO) 2.14 x10^3/uL (1-3.4); LYMPHOCYTES % (AUTO) 22 % (22-44); MD NO; MEAN CORPUSCULAR HEMOGLOBIN 30.3 pg (27.0-34.8); MEAN CORPUSCULAR HGB CONC 33.4 g/dL (32.4-35.8); MEAN CORPUSCULAR VOLUME 90.8 fL (80-100); MEAN PLATELET VOLUME 8.7 fL (7.4-10.4); MONOCYTES # (AUTO) 0.77 x10^3/uL (0.2-0.8); MONOCYTES % (AUTO) 8 % (2-9); NEUTROPHILS # (AUTO) 6.49 x10^3/uL (1.8-6.8); NEUTROPHILS % (AUTO) 67 % (42-75); PLATELET COUNT 251 x10^3/uL (130-400)
--- NOTE | 2020-01-26 18:23 | NUR ---
BREAK RN: AWARE OF CT RESULTS
[2020-01-26 18:28] LABS: ALANINE AMINOTRANSFERASE 25 U/L (12-78); ALBUMIN 3.3 g/dL (3.4-5.0); ANION GAP 6 mmol/L (5-15); CALCIUM 8.6 mg/dL (8.5-10.1); CHLORIDE 111 mmol/L (98-107); CREATININE 1.01 mg/dL (0.55-1.02); INTERNATIONAL NORMALIZED RATIO 0.95 (0.93-1.1); PROTHROMBIN TIME 10.1 Seconds (9.6-11.5)
[2020-01-26 18:30] LABS: ALKALINE PHOSPHATASE 62 U/L (45-117); BILIRUBIN,TOTAL 0.9 mg/dL (0.2-1.0); TOTAL PROTEIN 7.2 g/dL (6.4-8.2)
[2020-01-26] MEDS ORDERED: METOCLOPRAMIDE 5 MG/ML, 2ML IVPush ONE (18:30)
[2020-01-26] MEDS ORDERED: ONDANSETRON 2MG/ML, 2ML ONE (18:36)
[2020-01-26] MEDS ORDERED: ONDANSETRON 2MG/ML, 2ML IVPush ONE (19:00)
--- NOTE | 2020-01-26 19:11 | NUR ---
Dr. Aviles informed pt has a pacemaker, paging [facility] regarding if pacemaker is MRI compatible.
[2020-01-26] MEDS ORDERED: ENOXAPARIN 80 MG/0.8 ML SQ ONE (20:00)
[2020-01-26] MEDS ORDERED: ENOXAPARIN 60 MG/0.6 ML ONE (20:25)
[2020-01-26] MEDS ORDERED: KETOROLAC 30 MG/1 ML ONE (20:25)
[2020-01-26] MEDS ORDERED: ENOXAPARIN 100 MG/ML ONE (20:25)
[2020-01-26] MEDS ORDERED: ENOXAPARIN 80 MG/0.8 ML ONE (20:27)
[2020-01-26] MEDS ORDERED: KETOROLAC 30 MG/1 ML IVPush ONE (20:30)
[2020-01-26] MEDS ORDERED: BISACODYL 10 MG SUPP PR PRN (21:30)
[2020-01-26] MEDS ORDERED: Enoxaparin 1 mg/kg protocol SQ SCH (21:30)
[2020-01-26] MEDS ORDERED: CARVEDILOL 3.125 MG TABLET PO SCH ×2 (21:30→23:35)
[2020-01-26] MEDS ORDERED: ENALAPRILAT 1.25 MG/ML, 2ML IVPush PRN (21:30)
[2020-01-26] MEDS ORDERED: DOCUSATE 100 MG CAPSULE PO PRN (21:30)
[2020-01-26] MEDS ORDERED: ATORVASTATIN 10 MG TABLET PO SCH (21:30)
[2020-01-26] MEDS ORDERED: POLYETHYLENE GLYCOL 17 GM PACKET PO PRN (21:30)
[2020-01-26] MEDS ORDERED: LACTATED RINGERS 1,000 ML IV SCH (21:30)
[2020-01-26] MEDS ORDERED: ONDANSETRON ODT 4 MG PO PRN (21:30)
[2020-01-26] MEDS ORDERED: ACETAMINOPHEN 325 MG TABLET ONE (21:59)
[2020-01-26] MEDS ORDERED: ATORVASTATIN 40 MG TABLET ONE (21:59)
[2020-01-26] MEDS ORDERED: CARVEDILOL 3.125 MG TABLET ONE (21:59)
[2020-01-26] MEDS: ACETAMINOPHEN 325 MG TABLET PO PRN (22:04)
--- NOTE | 2020-01-26 22:06 | NUR ---
Pt medicated per emar, Head of bed at 15degrees
--- NOTE | 2020-01-26 22:09 | NUR ---
Pt to CT
[2020-01-26] MEDS ORDERED: OMNIPAQUE 350 MG/ML, 75ML BOTTLE ONE (22:27)
[2020-01-26 22:35] LABS: CHOL/HDL RATIO 5.2; LDL/HDL RATIO 3.3 (0.5-3.0)
--- NOTE | 2020-01-26 22:48 | NUR ---
Pt resting in room, meds infusing.
[2020-01-26] MEDS ORDERED: OXYcodone IR 5MG TABLET ONE (22:58)
[2020-01-26] MEDS ORDERED: GABAPENTIN 300 MG CAPSULE ONE (22:58)
[2020-01-26 22:59] LABS: HCT (SEDRATE) 44.5 % (34.6-47.8)
[2020-01-26] MEDS: OXYcodone IR 5MG TABLET PO PRN (23:01)
[2020-01-26] MEDS: GABAPENTIN 300 MG CAPSULE PO PRN (23:01)
--- NOTE | 2020-01-26 23:10 | NUR ---
Pt moved to a hospital bed and medicated for pain with roxicodone and gabapentin.
--- NOTE | 2020-01-26 23:18 | NUR ---
Report called to Rahel GREEN, informed that pt must remain at 15degreee HOB. Pt also has possible ischemic stroke. Pt has pacemaker [facility] [employer] that is not MRI compatible. Pt on hospital bed and recently medicated for pain.
[2020-01-26] MEDS ORDERED: ATORVASTATIN 40 MG TABLET PO SCH (23:32)
[2020-01-27] VITALS (9 sets, daily range): BP systolic 94–137; BP diastolic 63–89
[2020-01-27] MEDS ORDERED: WARFARIN 3 MG TABLET PO-COUM ONE (01:00)
[2020-01-27] MEDS ORDERED: WARFARIN 10 MG TABLET PO-COUM ONE ×2 (01:12→16:54)
[2020-01-27] MEDS ORDERED: WARFARIN 5 MG TABLET PO-COUM ONE ×2 (01:12→16:55)
[2020-01-27] MEDS: MORPHINE SULFATE 4 MG/ML, 1ML IVPush PRN ×2 (01:26→06:37)
[2020-01-27] MEDS ORDERED: WARFARIN 7.5 MG TABLET PO-COUM ONE ×2 (01:30→18:00)
[2020-01-27 04:50] LABS: PROTHROMBIN TIME 10.6 Seconds (9.6-11.5)
[2020-01-27] MEDS: ACETAMINOPHEN 325 MG TABLET PO PRN ×3 (06:36→19:58)
[2020-01-27] MEDS ORDERED: VALPROATE SODIUM 1,000 MG in SODIUM CHLORIDE 0.9% 100 ML IV ONE ×2 (08:30→10:30)
[2020-01-27] MEDS: DULOXETINE 30 MG CAPSULE.DR PO SCH (08:38)
[2020-01-27] MEDS: OMEPRAZOLE 20 MG CAPSULE.DR PO SCH (08:38)
[2020-01-27] MEDS: SENNA/DOCUSATE TABLET PO SCH (08:38)
[2020-01-27] MEDS: LISINOPRIL 5 MG TABLET PO SCH (08:39)
[2020-01-27] MEDS: ENOXAPARIN 80 MG/0.8 ML SQ SCH ×2 (08:40→19:58)
[2020-01-27] MEDS ORDERED: [UNRECOGNIZED DRUG - REMARK] MC SCH (09:00)
[2020-01-27] MEDS: WARFARIN MECH. VALVE PROTOCOL 2.5 to 3.5 XX SCH (09:00)
[2020-01-27] MEDS: ASPIRIN 81 MG TABLET EC PO SCH (10:35)
[2020-01-27] MEDS ORDERED: MAALOX/HYOSCYAMINE/LIDOCAINE 45 ML BTL PO ONE (12:00)
[2020-01-27 12:01] LABS: BASOPHILS # (AUTO) 0.11 x10^3/uL (0-0.1); BASOPHILS % (AUTO) 1 % (0-1); EOSINOPHILS # (AUTO) 0.18 x10^3/uL (0-0.4); EOSINOPHILS % (AUTO) 2 % (1-7); LYMPHOCYTES # (AUTO) 2.39 x10^3/uL (1-3.4); LYMPHOCYTES % (AUTO) 28 % (22-44); MD NO; MEAN CORPUSCULAR HEMOGLOBIN 30.2 pg (27.0-34.8); MEAN CORPUSCULAR VOLUME 91.5 fL (80-100); MEAN PLATELET VOLUME 8.3 fL (7.4-10.4); MONOCYTES # (AUTO) 0.66 x10^3/uL (0.2-0.8); MONOCYTES % (AUTO) 8 % (2-9); NEUTROPHILS % (AUTO) 60 % (42-75); PLATELET COUNT 245 x10^3/uL (130-400); RED CELL DISTRIBUTION WIDTH 13.2 % (9.6-15.2)
[2020-01-27 12:14] LABS: ALBUMIN 3.3 g/dL (3.4-5.0); ANION GAP 7 mmol/L (5-15); CALCIUM 8.5 mg/dL (8.5-10.1); CHLORIDE 112 mmol/L (98-107)
[2020-01-27 12:20] LABS: ALANINE AMINOTRANSFERASE 25 U/L (12-78); ALKALINE PHOSPHATASE 63 U/L (45-117); BILIRUBIN,TOTAL 1.1 mg/dL (0.2-1.0); CREATININE 0.88 mg/dL (0.55-1.02); TOTAL PROTEIN 7.1 g/dL (6.4-8.2); TROPONIN I < 0.015 ng/mL (0.000-0.045)
[2020-01-27] MEDS: OXYcodone IR 5MG TABLET PO PRN ×2 (13:20→19:58)
[2020-01-27 16:53] LABS: MEAN CORPUSCULAR HEMOGLOBIN 29.9 pg (27.0-34.8); MEAN CORPUSCULAR HGB CONC 32.9 g/dL (32.4-35.8); MEAN CORPUSCULAR VOLUME 90.9 fL (80-100); MEAN PLATELET VOLUME 8.4 fL (7.4-10.4); PLATELET COUNT 260 x10^3/uL (130-400); RED BLOOD COUNT 5.14 x10^6/uL (3.82-5.3); RED CELL DISTRIBUTION WIDTH 13.3 % (9.6-15.2)
[2020-01-27] MEDS: CARVEDILOL 3.125 MG TABLET PO SCH (17:00)
[2020-01-27] MEDS: ATORVASTATIN 80 MG TABLET PO SCH (19:58)
[2020-01-27] MEDS: DIVALPROEX 500 MG TABLET.DR PO SCH (19:59)
[2020-01-27] MEDS: GABAPENTIN 300 MG CAPSULE PO PRN (22:47)
[2020-01-27] MEDS: TRAZODONE 50MG TABLET PO PRN (22:47)
[2020-01-28 03:36] VITALS: BP 119/84
[2020-01-28] MEDS: ASPIRIN 81 MG TABLET EC PO SCH (06:02)
[2020-01-28] MEDS: GABAPENTIN 300 MG CAPSULE PO PRN ×2 (06:02→18:37)
[2020-01-28] MEDS: OXYcodone IR 5MG TABLET PO PRN ×2 (06:03→11:22)
[2020-01-28] MEDS: CARVEDILOL 3.125 MG TABLET PO SCH ×2 (06:03→17:29)
[2020-01-28 06:05] VITALS: BP 111/74
[2020-01-28 06:28] LABS: INTERNATIONAL NORMALIZED RATIO 1.52 (0.93-1.1); PROTHROMBIN TIME 16.2 Seconds (9.6-11.5)
[2020-01-28] MEDS: SENNA/DOCUSATE TABLET PO SCH ×2 (07:44→08:36)
[2020-01-28] MEDS: ACETAMINOPHEN 325 MG TABLET PO PRN (08:36)
[2020-01-28] MEDS: OMEPRAZOLE 20 MG CAPSULE.DR PO SCH (08:36)
[2020-01-28] MEDS: DIVALPROEX 500 MG TABLET.DR PO SCH ×2 (08:37→20:23)
[2020-01-28] MEDS: ENOXAPARIN 80 MG/0.8 ML SQ SCH ×2 (08:37→20:24)
[2020-01-28] MEDS: DULOXETINE 30 MG CAPSULE.DR PO SCH (08:37)
[2020-01-28] MEDS: LISINOPRIL 5 MG TABLET PO SCH (08:37)
[2020-01-28] MEDS: WARFARIN MECH. VALVE PROTOCOL 2.5 to 3.5 XX SCH (09:00)
[2020-01-28] MEDS ORDERED: ACETAMINOPHEN 500 MG TABLET PO PRN (13:30)
[2020-01-28 14:18] VITALS: BP 106/76
[2020-01-28] MEDS ORDERED: WARFARIN 3 MG TABLET PO-COUM SCH (18:00)
[2020-01-28] MEDS ORDERED: MORPHINE SULFATE 4 MG/ML, 1ML ONE (18:45)
[2020-01-28] MEDS ORDERED: MORPHINE SULFATE 4 MG/ML, 1ML IVPush PRN (19:00)
[2020-01-28 19:42] VITALS: BP 107/73
[2020-01-28] MEDS: ATORVASTATIN 80 MG TABLET PO SCH (20:23)
[2020-01-28] MEDS: TRAZODONE 50MG TABLET PO PRN (21:56)
[2020-01-29 01:27] VITALS: BP 119/84
[2020-01-29] MEDS: ASPIRIN 81 MG TABLET EC PO SCH (05:09)
[2020-01-29] MEDS: CARVEDILOL 3.125 MG TABLET PO SCH ×2 (05:09→18:20)
[2020-01-29 06:51] LABS: INTERNATIONAL NORMALIZED RATIO 3.18 (0.93-1.1); PROTHROMBIN TIME 34.1 Seconds (9.6-11.5)
[2020-01-29 07:09] VITALS: BP 99/73
[2020-01-29] MEDS: WARFARIN MECH. VALVE PROTOCOL 2.5 to 3.5 XX SCH (09:00)
[2020-01-29] MEDS: DIVALPROEX 500 MG TABLET.DR PO SCH ×2 (09:03→19:59)
[2020-01-29] MEDS: LISINOPRIL 5 MG TABLET PO SCH (09:03)
[2020-01-29] MEDS: OMEPRAZOLE 20 MG CAPSULE.DR PO SCH (09:03)
[2020-01-29] MEDS: DULOXETINE 30 MG CAPSULE.DR PO SCH (09:03)
[2020-01-29] MEDS: ENOXAPARIN 80 MG/0.8 ML SQ SCH ×2 (09:04→19:59)
[2020-01-29] MEDS: SENNA/DOCUSATE TABLET PO SCH (09:04)
[2020-01-29 13:05] VITALS: BP 110/74
[2020-01-29 16:25] VITALS: BP 142/76
[2020-01-29 16:30] VITALS: BP 138/72
[2020-01-29] MEDS: GABAPENTIN 300 MG CAPSULE PO PRN (17:15)
[2020-01-29] MEDS ORDERED: WARFARIN 7.5 MG TABLET PO-COUM SCH (18:00)
[2020-01-29] MEDS ORDERED: WARFARIN 5 MG TABLET PO-COUM ONE (18:18)
[2020-01-29 18:42] VITALS: BP 100/72
[2020-01-29] MEDS: ATORVASTATIN 80 MG TABLET PO SCH (19:59)
[2020-01-29] MEDS: TRAZODONE 50MG TABLET PO PRN (22:26)
[2020-01-30 01:46] VITALS: BP 112/72
[2020-01-30] MEDS: ASPIRIN 81 MG TABLET EC PO SCH (05:19)
[2020-01-30] MEDS: CARVEDILOL 3.125 MG TABLET PO SCH ×2 (05:20→17:07)
[2020-01-30 06:17] LABS: MEAN CORPUSCULAR HGB CONC 33.1 g/dL (32.4-35.8); MEAN CORPUSCULAR VOLUME 90.8 fL (80-100); MEAN PLATELET VOLUME 8.3 fL (7.4-10.4); PLATELET COUNT 218 x10^3/uL (130-400); RED BLOOD COUNT 4.97 x10^6/uL (3.82-5.3)
[2020-01-30 06:20] LABS: INTERNATIONAL NORMALIZED RATIO 3.18 (0.93-1.1); PROTHROMBIN TIME 33.1 Seconds (9.6-11.5)
[2020-01-30 08:00] VITALS: BP 114/81
[2020-01-30] MEDS: DULOXETINE 30 MG CAPSULE.DR PO SCH (08:47)
[2020-01-30] MEDS: DIVALPROEX 500 MG TABLET.DR PO SCH (08:48)
[2020-01-30] MEDS: OMEPRAZOLE 20 MG CAPSULE.DR PO SCH (08:48)
[2020-01-30] MEDS: LISINOPRIL 5 MG TABLET PO SCH (08:48)
[2020-01-30] MEDS: SENNA/DOCUSATE TABLET PO SCH ×2 (08:49→08:50)
[2020-01-30] MEDS: WARFARIN MECH. VALVE PROTOCOL 2.5 to 3.5 XX SCH (09:00)
[2020-01-30] MEDS ORDERED: DIVA-61 PO (12:15)
[2020-01-30] MEDS ORDERED: CARV3.1212 PO (12:15)
[2020-01-30] MEDS ORDERED: ATOR-2 PO (12:15)
[2020-01-30] MEDS ORDERED: Warfarin PO-COUM (12:15)
[2020-01-30] MEDS ORDERED: ASPI81TA45 PO (12:15)
[2020-01-30] MEDS ORDERED: TRAM50TA2 PO (12:15)
[2020-01-30 12:24] VITALS: BP 103/68
[2020-01-30] MEDS ORDERED: WARFARIN 10 MG TABLET PO-COUM SCH (18:00)
== END 2020-01-30 17:12 | disposition home or self-care (01) | DRG 68 ==
LOC: ED 19:28 → EDIP 20:35 → 4WST 23:27
PROVIDERS: ADMIT Family Medicine; ATTEND Family Medicine
DX: I66.02 Occlusion and stenosis of left middle cerebral artery (principal); I42.9 Cardiomyopathy, unspecified; Z68.43 Body mass index [BMI] 50.0-59.9, adult; E66.01 Morbid (severe) obesity due to excess calories; I50.9 Heart failure, unspecified; H54.61 Unqualified visual loss, right eye, normal vision left eye; I11.0 Hypertensive heart disease with heart failure; F32.9 Major depressive disorder, single episode, unspecified; F41.9 Anxiety disorder, unspecified; K21.9 Gastro-esophageal reflux disease without esophagitis; R07.89 Other chest pain; R07.81 Pleurodynia; H53.8 Other visual disturbances; I25.2 Old myocardial infarction; Z79.01 Long term (current) use of anticoagulants; Z79.899 Other long term (current) drug therapy; Z86.73 Personal history of transient ischemic attack (TIA), and cerebral infarction without residual deficits; Z87.891 Personal history of nicotine dependence; Z91.19 Patient's noncompliance with other medical treatment and regimen; Z95.0 Presence of cardiac pacemaker; Z95.2 Presence of prosthetic heart valve; Z83.3 Family history of diabetes mellitus; Z71.3 Dietary counseling and surveillance
CPT/HCPCS: 36415; 70450; 70496; 70498; 71045; 80053; 80061; 83036; 84443; 84484; 85025; 85027; 85610; 85651; 85730; 93005; 93306; 96372; 96374; G0378; J1650; J1885; J2405; Q0162; Q9967; 92523-GN; J1200; J2270; J2765; J7120

== ENCOUNTER 2020-02-12 14:07 | Emergency (ER) | payer MEDICAID ==
[~2020-02-12] VITALS: Ht 170.2 cm; Wt 161.5 kg
[~2020-02-12 14:07] MED LIST changes: +ASPI81TA45 PO; +ATOR-2 PO; +DIVA-61 PO; +Warfarin PO-COUM
--- NOTE | 2020-02-12 15:46 | NUR ---
ER at [facility]
--- NOTE | 2020-02-12 15:47 | NUR ---
Pt here for BUSH. Pt states pressure is behind R eye, suffering from photophobia, some blurry vision. BP WNL. Pt has HX of CVA. No motor/neuro deficits noted. Able to ambulate well.
[2020-02-12 16:08] LABS: BASOPHILS # (AUTO) 0.03 x10^3/uL (0-0.1); BASOPHILS % (AUTO) 0 % (0-1); EOSINOPHILS # (AUTO) 0.29 x10^3/uL (0-0.4); EOSINOPHILS % (AUTO) 3 % (1-7); LYMPHOCYTES # (AUTO) 1.74 x10^3/uL (1-3.4); LYMPHOCYTES % (AUTO) 19 % (22-44); MD NO; MEAN CORPUSCULAR HEMOGLOBIN 29.9 pg (27.0-34.8); MEAN CORPUSCULAR HGB CONC 32.5 g/dL (32.4-35.8); MEAN PLATELET VOLUME 8.1 fL (7.4-10.4); MONOCYTES # (AUTO) 0.71 x10^3/uL (0.2-0.8); MONOCYTES % (AUTO) 8 % (2-9); NEUTROPHILS # (AUTO) 6.24 x10^3/uL (1.8-6.8); NEUTROPHILS % (AUTO) 69 % (42-75); PLATELET COUNT 275 x10^3/uL (130-400); RED BLOOD COUNT 4.87 x10^6/uL (3.82-5.3); RED CELL DISTRIBUTION WIDTH 13.2 % (9.6-15.2)
--- NOTE | 2020-02-12 16:14 | NUR ---
Pt to restroom, ambulating well
[2020-02-12 16:19] LABS: ANION GAP 3 mmol/L (5-15); CALCIUM 8.9 mg/dL (8.5-10.1); CHLORIDE 107 mmol/L (98-107)
[2020-02-12 16:20] LABS: CREATININE 0.92 mg/dL (0.55-1.02)
--- NOTE | 2020-02-12 16:26 | NUR ---
Pt to CT
[2020-02-12 16:55] LABS: INTERNATIONAL NORMALIZED RATIO 2.42 (0.93-1.1); PROTHROMBIN TIME 25.1 Seconds (9.6-11.5)
--- NOTE | 2020-02-12 17:20 | NUR ---
Pt states BUSH, request for pain meds, ERP aware
[2020-02-12] MEDS ORDERED: METOCLOPRAMIDE 5 MG/ML, 2ML ONE (17:52)
[2020-02-12] MEDS ORDERED: DIPHENHYDRAMINE 50 MG/ML, 1ML ONE (17:52)
[2020-02-12] MEDS ORDERED: METOCLOPRAMIDE 5 MG/ML, 2ML IVPush ONE (18:00)
[2020-02-12] MEDS ORDERED: DIPHENHYDRAMINE 50 MG/ML, 1ML IVPush ONE (18:00)
[2020-02-12] MEDS ORDERED: SODIUM CHLORIDE 0.9% 1,000ML IVBOLUS ONE (18:00)
--- NOTE | 2020-02-12 18:03 | NUR ---
PIV started, fluids infusing. Pt medicated.
[2020-02-12] MEDS ORDERED: SODIUM CHLORIDE FLUSH 10ML SYR IVF ONE (18:30)
[2020-02-12 18:32] VITALS: BP 113/60
== END 2020-02-12 19:09 | disposition home or self-care (01) ==
LOC: ED 19:00
DX: G43.B0 Ophthalmoplegic migraine, not intractable (principal); I69.30 Unspecified sequelae of cerebral infarction; I11.0 Hypertensive heart disease with heart failure; I50.9 Heart failure, unspecified; Z95.0 Presence of cardiac pacemaker
CPT/HCPCS: 36415; 70450; 80048; 82040; 85025; 85610; 85730; 96361; 96374; 96375; 99285; J1200; J2765; J7030

== ENCOUNTER 2020-03-29 16:48 | Emergency (ER) | payer MEDICAID, OTHER ==
[~2020-03-29] VITALS: Ht 170.2 cm; Wt 158.4 kg
[~2020-03-29 16:48] MED LIST changes: +OMNIPAQUE 350 MG/ML, 100ML BOTTLE ONE
[2020-03-29] MEDS ORDERED: SODIUM CHLORIDE FLUSH 10ML SYR IVF ONE (17:30)
[2020-03-29 18:08] LABS: BASOPHILS % (AUTO) 1 % (0-1); EOSINOPHILS % (AUTO) 6 % (1-7); LYMPHOCYTES % (AUTO) 26 % (22-44); MEAN CORPUSCULAR HEMOGLOBIN 30.2 pg (27.0-34.8); MEAN CORPUSCULAR HGB CONC 33.1 g/dL (32.4-35.8); MEAN PLATELET VOLUME 8.5 fL (7.4-10.4); MONOCYTES % (AUTO) 8 % (2-9); NEUTROPHILS % (AUTO) 59 % (42-75); PLATELET COUNT 295 x10^3/uL (130-400); RED BLOOD COUNT 5.11 x10^6/uL (3.82-5.3); RED CELL DISTRIBUTION WIDTH 13.5 % (9.6-15.2)
[2020-03-29 18:12] LABS: INTERNATIONAL NORMALIZED RATIO 3.92 (0.93-1.1); PROTHROMBIN TIME 40.9 Seconds (9.6-11.5)
[2020-03-29 18:14] LABS: CHLORIDE 105 mmol/L (98-107)
[2020-03-29 18:23] LABS: ALANINE AMINOTRANSFERASE 39 U/L (12-78); ALBUMIN 3.5 g/dL (3.4-5.0); ALKALINE PHOSPHATASE 73 U/L (45-117); ANION GAP 6 mmol/L (5-15); BILIRUBIN,TOTAL 0.8 mg/dL (0.2-1.0); CALCIUM 8.7 mg/dL (8.5-10.1); CREATININE 0.91 mg/dL (0.55-1.02); TOTAL PROTEIN 7.7 g/dL (6.4-8.2)
[2020-03-29 18:32] LABS: MD NO
--- NOTE | 2020-03-29 18:50 | NUR ---
Pt to room
--- NOTE | 2020-03-29 18:52 | NUR ---
Pt reports she fell on her buttock when walking. She reports getting up and then started having alot of pain and not feeling well. Pt reports she has not seen any bruising in her areas. Pt is concerned because she is on coumadin for her mechanical heart valve. Pt is able to sit on her bottom. Pt resting in room and was able to ambulate about 200 feet with no distress.
--- NOTE | 2020-03-29 18:57 | NUR ---
BREAK RN: PT. AMBULATORY TO BR FOR URINE SAMPLE; CLEAN CATCH INSTRUCTIONS EXPLAINED.
--- NOTE | 2020-03-29 19:10 | NUR ---
BREAK RN: IV ESTABLISHED AND URINE SAMPLE SENT TO LAB.
[2020-03-29 19:24] LABS: MICROSCOPIC NOT IND
--- NOTE | 2020-03-29 19:31 | NUR ---
Awaiting for patien to go to CT
[2020-03-29] MEDS ORDERED: HYDROcodone/APAP 5/325 TABLET ONE (19:49)
[2020-03-29 20:00] VITALS: BP 155/82
[2020-03-29] MEDS ORDERED: HYDROcodone/APAP 5/325 TABLET PO ONE (20:00)
--- NOTE | 2020-03-29 20:00 | NUR ---
pT TO CT, MEDICATED PER EMAR
--- NOTE | 2020-03-29 21:38 | NUR ---
Patient/Caregiver given discharge instructions and they have confirmed that they understand the instructions. Patient ambulatory with steady gait.
== END 2020-03-29 21:40 | disposition home or self-care (01) ==
LOC: ED 18:39
DX: G89.11 Acute pain due to trauma (principal); R10.84 Generalized abdominal pain; R10.2 Pelvic and perineal pain; F17.290 Nicotine dependence, other tobacco product, uncomplicated; I11.0 Hypertensive heart disease with heart failure; I50.9 Heart failure, unspecified; Z86.73 Personal history of transient ischemic attack (TIA), and cerebral infarction without residual deficits; Z95.0 Presence of cardiac pacemaker; W18.30XA Fall on same level, unspecified, initial encounter; Y93.89 Activity, other specified; Y92.89 Other specified places as the place of occurrence of the external cause; Y99.8 Other external cause status
CPT/HCPCS: 36415; 74177; 80053; 81003; 84703; 85025; 85610; 85730; 93005; 99285; 99406; Q9967

== ENCOUNTER 2020-04-28 17:08 | Inpatient (IN) | payer MEDICAID, OTHER ==
[~2020-04-28] VITALS: Ht 170.2 cm; Wt 151.5 kg
[~2020-04-28 17:08] MED LIST changes: -OMNIPAQUE 350 MG/ML, 100ML BOTTLE ONE
[2020-04-28] MEDS ORDERED: MORPHINE SULFATE 4 MG/ML, 1ML ONE ×3 (17:26→20:03)
[2020-04-28] MEDS ORDERED: ONDANSETRON 2MG/ML, 2ML ONE ×2 (17:26→20:03)
[2020-04-28] MEDS ORDERED: ONDANSETRON 2MG/ML, 2ML IVPush ONE ×2 (17:30→20:00)
[2020-04-28] MEDS ORDERED: LORazepam 2 MG/ML, 1ML IVPush ONE (17:30)
[2020-04-28] MEDS ORDERED: ASPIRIN 81 MG TABLET CHEW PO ONE (17:30)
--- NOTE | 2020-04-28 17:37 | NUR ---
Code Cardiac called @ 1726 Cardiology paged @ 1729 labor commissioner called @ 1726 Dr. Diane called back @ 1737
[2020-04-28] MEDS: MORPHINE SULFATE 4 MG/ML, 1ML IVPush PRN ×2 (17:40→18:04)
[2020-04-28 17:43] LABS: BASOPHILS % (AUTO) 1 % (0-1); EOSINOPHILS % (AUTO) 0 % (1-7); LYMPHOCYTES % (AUTO) 18 % (22-44); MEAN CORPUSCULAR HEMOGLOBIN 29.8 pg (27.0-34.8); MEAN PLATELET VOLUME 8.3 fL (7.4-10.4); MONOCYTES % (AUTO) 8 % (2-9); NEUTROPHILS % (AUTO) 73 % (42-75); PLATELET COUNT 279 x10^3/uL (130-400); RED BLOOD COUNT 5.07 x10^6/uL (3.82-5.3); RED CELL DISTRIBUTION WIDTH 13.7 % (9.6-15.2)
[2020-04-28 17:44] LABS: MD NO
--- NOTE | 2020-04-28 17:44 | NUR ---
CODE CARDIAC CANCELLED AT THIS TIME
--- NOTE | 2020-04-28 17:44 | NUR ---
Code Cardiac canceled @ [id number]
[2020-04-28] MEDS ORDERED: LORazepam 2 MG/ML, 1ML ONE (17:46)
[2020-04-28 17:52] LABS: INTERNATIONAL NORMALIZED RATIO 3.32 (0.93-1.1); PROTHROMBIN TIME 34.8 Seconds (9.6-11.5)
[2020-04-28 17:54] LABS: ALANINE AMINOTRANSFERASE 31 U/L (12-78); ALBUMIN 3.5 g/dL (3.4-5.0); ANION GAP 5 mmol/L (5-15); CHLORIDE 109 mmol/L (98-107); CREATININE 0.96 mg/dL (0.55-1.02)
[2020-04-28 17:59] LABS: ALKALINE PHOSPHATASE 60 U/L (45-117); BILIRUBIN,TOTAL 0.8 mg/dL (0.2-1.0); TOTAL PROTEIN 7.5 g/dL (6.4-8.2); TROPONIN I < 0.015 ng/mL (0.000-0.045)
--- NOTE | 2020-04-28 18:00 | NUR ---
PT RESTING IN BED ON PHONE. APPEARS IN NO ACUTE DISTRESS. VSS.
--- NOTE | 2020-04-28 18:09 | NUR ---
PT STATES PAIN IS NOW AT A 5/10. STATES BASELINE RANGES FROM 3-7/10 FOR PAIN LEVEL
--- NOTE | 2020-04-28 18:50 | NUR ---
pt resting in bed calmly. on telephone. vss. will continue to monitor. med rec done
--- NOTE | 2020-04-28 19:19 | NUR ---
BREAK RN: PT ON CELL PHONE IN ROOM. VS STABLE. CONTROLLER INSTRUCTOR ON. CALL LIGHT IN PLACE WILL COTINUE TO MONITOR WHILE PRIMARY RN IS ON BREAK.
[2020-04-28] MEDS ORDERED: MORPHINE SULFATE 4 MG/ML, 1ML IVPush PRN (20:00)
[2020-04-28] MEDS ORDERED: GABAPENTIN 300 MG CAPSULE PO PRN (20:30)
[2020-04-28 21:12] VITALS: BP 123/86
[2020-04-28 21:49] LABS: TROPONIN I < 0.015 ng/mL (0.000-0.045)
[2020-04-28] MEDS ORDERED: WARFARIN 5 MG TABLET PO-COUM ONE (22:00)
[2020-04-28] MEDS: BUSPIRONE 5 MG TABLET PO SCH (23:36)
[2020-04-28] MEDS: ATORVASTATIN 80 MG TABLET PO SCH (23:36)
[2020-04-29] VITALS (10 sets, daily range): BP systolic 103–139; BP diastolic 60–89
[2020-04-29 06:04] LABS: INTERNATIONAL NORMALIZED RATIO 3.08 (0.93-1.1); PROTHROMBIN TIME 32.3 Seconds (9.6-11.5)
[2020-04-29] MEDS: ASPIRIN 81 MG TABLET EC PO SCH (06:13)
[2020-04-29] MEDS: CARVEDILOL 3.125 MG TABLET PO SCH ×2 (06:13→18:02)
[2020-04-29] MEDS: WARFARIN MECH. VALVE PROTOCOL 2.5 to 3.5 XX SCH (09:00)
[2020-04-29] MEDS: DULOXETINE 30 MG CAPSULE.DR PO SCH (09:19)
[2020-04-29] MEDS: OMEPRAZOLE 20 MG CAPSULE.DR PO SCH (09:20)
[2020-04-29] MEDS: LORazepam 1MG TABLET PO PRN ×2 (09:20→20:13)
[2020-04-29] MEDS: BUSPIRONE 5 MG TABLET PO SCH ×2 (09:20→20:11)
[2020-04-29] MEDS: LISINOPRIL 5 MG TABLET PO SCH (09:20)
[2020-04-29] MEDS: DULOXETINE 20 MG CAPSULE.DR PO SCH (09:20)
[2020-04-29] MEDS ORDERED: FLU VACC QS2020-21(6MOS UP)/PF 60MCG/0.5 ML SYR IM-VACC ONE (12:00)
[2020-04-29] MEDS ORDERED: MAALOX/HYOSCYAMINE/LIDOCAINE 45 ML BTL PO ONE (17:00)
--- NOTE | 2020-04-29 17:41 | NUR ---
DAWOOD GERMAIN Fall Risk Medication(s) present and receiving anticoagulants. Signed: 04/29/20 at 1742 by SEA GEORGE
[2020-04-29] MEDS ORDERED: WARFARIN 10 MG PO-COUM SCH (18:00)
[2020-04-29] MEDS ORDERED: WARFARIN 5 MG TABLET PO-COUM ONE (18:00)
[2020-04-29] MEDS: ATORVASTATIN 80 MG TABLET PO SCH (20:11)
[2020-04-30 00:08] VITALS: BP 90/62
[2020-04-30 00:09] VITALS: BP 97/67
[2020-04-30 05:04] LABS: INTERNATIONAL NORMALIZED RATIO 3.84 (0.93-1.1); PROTHROMBIN TIME 40.2 Seconds (9.6-11.5)
[2020-04-30 05:51] VITALS: BP 105/68
[2020-04-30] MEDS: CARVEDILOL 3.125 MG TABLET PO SCH ×2 (05:54→17:28)
[2020-04-30] MEDS: OMEPRAZOLE 20 MG CAPSULE.DR PO SCH (05:54)
[2020-04-30] MEDS: LORazepam 1MG TABLET PO PRN ×3 (06:31→20:26)
[2020-04-30 07:43] VITALS: BP 100/67
[2020-04-30] MEDS: WARFARIN MECH. VALVE PROTOCOL 2.5 to 3.5 XX SCH (08:21)
[2020-04-30] MEDS: LISINOPRIL 5 MG TABLET PO SCH (08:51)
[2020-04-30] MEDS: DULOXETINE 30 MG CAPSULE.DR PO SCH (09:37)
[2020-04-30] MEDS: DULOXETINE 20 MG CAPSULE.DR PO SCH (09:37)
[2020-04-30] MEDS: ASPIRIN 81 MG TABLET EC PO SCH (09:37)
[2020-04-30] MEDS: BUSPIRONE 5 MG TABLET PO SCH ×2 (09:37→20:13)
[2020-04-30] MEDS ORDERED: SODIUM CHLORIDE 0.9%, 500ML IVBOLUS ONE (12:00)
[2020-04-30 12:44] VITALS: BP 123/85
[2020-04-30] MEDS: ACETAMINOPHEN 325 MG TABLET PO PRN (12:56)
[2020-04-30] MEDS ORDERED: WARFARIN 10 MG TABLET PO-COUM SCH (18:00)
[2020-04-30] MEDS ORDERED: WARFARIN 5 MG TABLET PO-COUM ONE (18:00)
[2020-04-30 19:51] VITALS: BP 96/64
[2020-04-30] MEDS: ONDANSETRON 4 MG TABLET PO PRN (20:13)
[2020-04-30] MEDS: ATORVASTATIN 80 MG TABLET PO SCH (20:13)
[2020-05-01 00:54] VITALS: BP 95/63
[2020-05-01 05:23] VITALS: BP 115/79
[2020-05-01] MEDS: ASPIRIN 81 MG TABLET EC PO SCH (05:27)
[2020-05-01] MEDS: CARVEDILOL 3.125 MG TABLET PO SCH ×2 (05:27→18:00)
[2020-05-01 07:30] VITALS: BP 92/63
[2020-05-01] MEDS: LISINOPRIL 5 MG TABLET PO SCH (07:45)
[2020-05-01] MEDS: OMEPRAZOLE 20 MG CAPSULE.DR PO SCH (07:53)
[2020-05-01] MEDS: BUSPIRONE 5 MG TABLET PO SCH ×2 (07:53→20:26)
[2020-05-01] MEDS: DULOXETINE 20 MG CAPSULE.DR PO SCH (07:53)
[2020-05-01] MEDS: LORazepam 1MG TABLET PO PRN ×2 (07:55→14:51)
[2020-05-01] MEDS: ACETAMINOPHEN 325 MG TABLET PO PRN (07:55)
[2020-05-01] MEDS: DULOXETINE 30 MG CAPSULE.DR PO SCH (07:55)
[2020-05-01 08:41] LABS: INTERNATIONAL NORMALIZED RATIO 4.29 (0.93-1.1); PROTHROMBIN TIME 44.8 Seconds (9.6-11.5)
[2020-05-01] MEDS: WARFARIN MECH. VALVE PROTOCOL 2.5 to 3.5 XX SCH (09:00)
[2020-05-01] MEDS ORDERED: HOLD COUMADIN MC PRN (09:30)
[2020-05-01 14:49] VITALS: BP 106/74
[2020-05-01] MEDS ORDERED: LORazepam 1MG TABLET PO PRN (15:00)
[2020-05-01 19:33] VITALS: BP 104/73
[2020-05-01] MEDS: ONDANSETRON 4 MG TABLET PO PRN (20:26)
[2020-05-01] MEDS: ATORVASTATIN 80 MG TABLET PO SCH (20:26)
[2020-05-02] MEDS: LORazepam 1MG TABLET PO PRN ×2 (03:30→09:28)
[2020-05-02] MEDS: ONDANSETRON 4 MG TABLET PO PRN (03:30)
[2020-05-02 03:32] VITALS: BP 107/72
[2020-05-02 05:51] VITALS: BP 90/59
[2020-05-02] MEDS: ASPIRIN 81 MG TABLET EC PO SCH (05:53)
[2020-05-02] MEDS: CARVEDILOL 3.125 MG TABLET PO SCH (05:53)
[2020-05-02 07:10] VITALS: BP 100/68
[2020-05-02] MEDS: OMEPRAZOLE 20 MG CAPSULE.DR PO SCH (08:02)
[2020-05-02] MEDS: BUSPIRONE 5 MG TABLET PO SCH (08:02)
[2020-05-02] MEDS: DULOXETINE 30 MG CAPSULE.DR PO SCH (08:02)
[2020-05-02] MEDS: DULOXETINE 20 MG CAPSULE.DR PO SCH (08:02)
[2020-05-02] MEDS: ACETAMINOPHEN 325 MG TABLET PO PRN (08:02)
[2020-05-02] MEDS: LISINOPRIL 5 MG TABLET PO SCH (08:03)
[2020-05-02] MEDS: WARFARIN MECH. VALVE PROTOCOL 2.5 to 3.5 XX SCH (09:00)
[2020-05-02 09:13] LABS: INTERNATIONAL NORMALIZED RATIO 2.88 (0.93-1.1); PROTHROMBIN TIME 30.2 Seconds (9.6-11.5)
[2020-05-02] MEDS ORDERED: WARFARIN 7.5 MG TABLET PO-COUM ONE (13:22)
[2020-05-02 13:32] VITALS: BP 96/66
== END 2020-05-02 15:58 | disposition home or self-care (01) | DRG 313 ==
LOC: ED 17:28 → OBSVTOIN 18:35 → INTOOBSV 18:35 → EDIP 18:35 → 5SO 21:06 → 3N 04-30 15:18 → DCLOUNGE 05-02 15:53
PROVIDERS: ADMIT Student in an Organized Health Care Education/Training Program; ATTEND Student in an Organized Health Care Education/Training Program
DX: R07.89 Other chest pain (principal); F33.2 Major depressive disorder, recurrent severe without psychotic features; R45.851 Suicidal ideations; Z68.43 Body mass index [BMI] 50.0-59.9, adult; F29 Unspecified psychosis not due to a substance or known physiological condition; I11.0 Hypertensive heart disease with heart failure; F41.0 Panic disorder [episodic paroxysmal anxiety]; F12.90 Cannabis use, unspecified, uncomplicated; R55 Syncope and collapse; R10.13 Epigastric pain; E66.9 Obesity, unspecified; I50.9 Heart failure, unspecified; Z79.01 Long term (current) use of anticoagulants; Z86.73 Personal history of transient ischemic attack (TIA), and cerebral infarction without residual deficits; Z83.3 Family history of diabetes mellitus; Z95.0 Presence of cardiac pacemaker; Z95.2 Presence of prosthetic heart valve
CPT/HCPCS: 36415; 70450; 71045; 80047; 80053; 84484; 85014; 85018; 85025; 85610; 90686; 93005; 93306; G0378; J2405; Q0162; J2060; J2270; J7040

== ENCOUNTER 2020-05-27 19:06 | Emergency (ER) | payer MEDICAID ==
[~2020-05-27] VITALS: Ht 170.2 cm; Wt 151.6 kg
[2020-05-27 20:44] VITALS: BP 121/73
== END 2020-05-27 20:46 | disposition home or self-care (01) ==
LOC: ED 20:43
DX: S80.02XA Contusion of left knee, initial encounter (principal); S09.90XA Unspecified injury of head, initial encounter; I11.0 Hypertensive heart disease with heart failure; I50.9 Heart failure, unspecified; G43.909 Migraine, unspecified, not intractable, without status migrainosus; Z86.73 Personal history of transient ischemic attack (TIA), and cerebral infarction without residual deficits; Z95.0 Presence of cardiac pacemaker; W01.0XXA Fall on same level from slipping, tripping and stumbling without subsequent striking against object, initial encounter; Y93.89 Activity, other specified; Y92.098 Other place in other non-institutional residence as the place of occurrence of the external cause; Y99.8 Other external cause status
CPT/HCPCS: 99283

== ENCOUNTER 2020-06-03 12:44 | Emergency (ER) | payer MEDICAID ==
[~2020-06-03] VITALS: Ht 170.2 cm; Wt 148.8 kg
[2020-06-03 13:00] VITALS: BP 149/95
[2020-06-03] MEDS ORDERED: ACETAMINOPHEN 325 MG TABLET ONE (13:04)
--- NOTE | 2020-06-03 13:05 | NUR ---
650 MG TYLENOL PO PER VERBAL ORDER DANNY BANEGAS.
[2020-06-03] MEDS ORDERED: IBUPROFEN 200 MG TABLET PO ONE (13:30)
[2020-06-03] MEDS ORDERED: ACETAMINOPHEN 325 MG TABLET PO ONE (13:30)
== END 2020-06-03 14:10 ==
LOC: ED 14:09
DX: S63.283A Dislocation of proximal interphalangeal joint of left middle finger, initial encounter (principal); I11.0 Hypertensive heart disease with heart failure; I50.9 Heart failure, unspecified; Z86.73 Personal history of transient ischemic attack (TIA), and cerebral infarction without residual deficits; Z59.0 Homelessness; Z79.01 Long term (current) use of anticoagulants; W01.0XXA Fall on same level from slipping, tripping and stumbling without subsequent striking against object, initial encounter; Y93.89 Activity, other specified; Y92.488 Other paved roadways as the place of occurrence of the external cause; Y99.8 Other external cause status
CPT/HCPCS: 26700; 99284

== ENCOUNTER 2020-09-02 08:09 | Emergency (ER) | payer MEDICAID ==
[~2020-09-02] VITALS: Ht 170.2 cm; Wt 153.0 kg
[2020-09-02] MEDS ORDERED: HYDR1TAB53 PO (08:21)
--- NOTE | 2020-09-02 08:24 | NUR ---
PATIENT BIB EMS WITH CHIEF C/O CHEST PAIN/PRESSURE X2 DAYS. PER EMS PAIN RADIATES TO UPPER BACK, AND HAS GOTTEN PROGRESSIVELY WORSE, PAIN WOKE PATIENT UP THIS MORNING.PATIENT REPORTS PAIN IS ON THE LEFT SIDE OF HER CHEST AND LEFT UPPER BACK. 20 GAUGE IV STARTED R-AC EN ROUTE, AND 324 ASA GIVEN BY EMS PRIOR TO ARRIVAL. VSS EN ROUTE. 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 PATIENT TAKES 10 MG COUMADIN, UNSURE WHAT LAST INR WAS. UPON ASSESSMENT PATIENT C/O 8/10 LEFT CHEST PAIN THAT RADIATES TO HER UPPER LEFT BACK, MADE WORSE WITH DEEP BREATHING. 98% ON RA, PACED IN THE 80'S ON THE MONITOR, NADN, CALL LIGHT WITHIN REACH.
--- NOTE | 2020-09-02 08:28 | NUR ---
ERMD AT BEDSIDE FOR EVALUATION.
[2020-09-02] MEDS ORDERED: LIDODERM 5% PATCH TD ONE ×2 (08:40→09:30)
--- NOTE | 2020-09-02 08:42 | NUR ---
LIDOCAINE PATCH PLACED ON UPPER LEFT BACK PER PATIENT'S REQUEST.
--- NOTE | 2020-09-02 08:54 | NUR ---
MAINTENANCE DISPATCHER AT BEDSIDE.
[2020-09-02 09:13] LABS: BASOPHILS % (AUTO) 1 % (0-1); EOSINOPHILS % (AUTO) 2 % (1-7); LYMPHOCYTES % (AUTO) 22 % (22-44); MEAN CORPUSCULAR HEMOGLOBIN 31.3 pg (27.0-34.8); MEAN CORPUSCULAR HGB CONC 34.6 g/dL (32.4-35.8); MEAN PLATELET VOLUME 8.6 fL (7.4-10.4); MONOCYTES % (AUTO) 18 % (2-9); NEUTROPHILS % (AUTO) 58 % (42-75); PLATELET COUNT 197 x10^3/uL (130-400); RED BLOOD COUNT 4.84 x10^6/uL (3.82-5.3); RED CELL DISTRIBUTION WIDTH 13.2 % (9.6-15.2)
[2020-09-02 09:15] LABS: CALCIUM 8.3 mg/dL (8.5-10.1); CHLORIDE 106 mmol/L (98-107)
[2020-09-02 09:18] LABS: INTERNATIONAL NORMALIZED RATIO 1.53 (0.93-1.1); PROTHROMBIN TIME 16.2 Seconds (9.6-11.5)
[2020-09-02 09:19] LABS: ALBUMIN 3.1 g/dL (3.4-5.0); ANION GAP 8 mmol/L (5-15); CREATININE 0.75 mg/dL (0.55-1.02)
[2020-09-02 09:20] LABS: MD NO
--- NOTE | 2020-09-02 09:20 | NUR ---
PATIENT SITTING IN [facility] ON PHONE, [place], VSS, CALL LIGHT WITHIN REACH, NO FURTHER NEEDS AT THIS TIME. WAITING FOR LAB AND IMAGING RESULTS.
[2020-09-02 09:24] LABS: TROPONIN I < 0.015 ng/mL (0.000-0.045)
--- NOTE | 2020-09-02 10:17 | NUR ---
TASK RN NOTE: PT RESTING ON GURNEY, A&O, RESPS EVEN AND UNLABORED. PT NOTES CHEST PAIN LEVEL IS 8/10, UNCHANGED SINCE ARRIVAL. PT IS NSR ON INTERVENTION ANALYST WITH NO ECTOPY, RATE 70'S. CHART UP FOR RECHECK, AWAITING MD AND DISPO.
--- NOTE | 2020-09-02 10:25 | NUR ---
REPORT GIVEN BACK TO PRIMARY NORMA MOYA.
[2020-09-02 11:10] VITALS: BP 117/68
--- NOTE | 2020-09-02 11:26 | NUR ---
IV removed with tip intact. Patient given discharge instructions and prescription and they have confirmed that they understand the instructions. Patient stable and ambulatory with steady gait from ED to private vehicle.
== END 2020-09-02 11:27 | disposition home or self-care (01) ==
LOC: ED 10:35
DX: R07.2 Precordial pain (principal); I11.0 Hypertensive heart disease with heart failure; I50.9 Heart failure, unspecified; Z86.73 Personal history of transient ischemic attack (TIA), and cerebral infarction without residual deficits; Z95.0 Presence of cardiac pacemaker
CPT/HCPCS: 36415; 71045; 80048; 82040; 84484; 85025; 85610; 93005; 99285

== ENCOUNTER 2021-01-02 14:56 | Emergency (ER) | payer MEDICAID ==
[~2021-01-02] VITALS: Ht 170.2 cm; Wt 150.0 kg
[~2021-01-02 14:56] MED LIST changes: +HYDR1TAB53 PO
--- NOTE | 2021-01-02 15:07 | NUR ---
BIBA FOR STABBING L. SIDE CHEST PAIN STARTED LAST NIGHT. PT W/ EXTENSTIVE CARDIC HISTORY. PT TO BED WITH STEADY GAIT FROM EMS GURNEY. PT POSTIONED TO COMFORT. ATTACHED TO MONITORS. VSS. RAYMUNDO. AWAITING ORDERS.
--- NOTE | 2021-01-02 15:34 | NUR ---
ONEIDA TO BEDSIDE FOR EVALUATION.
[2021-01-02 16:01] LABS: BASOPHILS % (AUTO) 1 % (0-1); EOSINOPHILS % (AUTO) 0 % (1-7); LYMPHOCYTES % (AUTO) 13 % (22-44); MEAN CORPUSCULAR HEMOGLOBIN 30.8 pg (27.0-34.8); MEAN CORPUSCULAR HGB CONC 34.2 g/dL (32.4-35.8); MEAN PLATELET VOLUME 8.4 fL (7.4-10.4); MONOCYTES % (AUTO) 6 % (2-9); NEUTROPHILS % (AUTO) 80 % (42-75); PLATELET COUNT 273 x10^3/uL (130-400)
[2021-01-02 16:09] LABS: ALANINE AMINOTRANSFERASE 37 U/L (12-78); ALBUMIN 3.2 g/dL (3.4-5.0); ANION GAP 3 mmol/L (5-15); CALCIUM 9.1 mg/dL (8.5-10.1); CHLORIDE 108 mmol/L (98-107); CREATININE 0.79 mg/dL (0.55-1.02)
[2021-01-02 16:10] LABS: D-DIMER 0.38 ug/mlFEU (0.00-0.52); INTERNATIONAL NORMALIZED RATIO 1.25 (0.93-1.1); PROTHROMBIN TIME 13.2 Seconds (9.6-11.5)
[2021-01-02 16:15] LABS: ALKALINE PHOSPHATASE 61 U/L (45-117); BILIRUBIN,TOTAL 1.1 mg/dL (0.2-1.0); TOTAL PROTEIN 7.4 g/dL (6.4-8.2); TROPONIN I < 0.015 ng/mL (0.000-0.045)
--- NOTE | 2021-01-02 16:27 | NUR ---
PT WITH STEADY GAIT TO BATHROOM. VSS.PT STATES 10/10 PAIN. MD NOTIFED. PAIN MEDICATION REQUESTED.
[2021-01-02] MEDS ORDERED: MORPHINE SULFATE 4 MG/ML, 1ML IVPush PRN (16:30)
[2021-01-02] MEDS ORDERED: MORPHINE SULFATE 4 MG/ML, 1ML ONE (16:34)
[2021-01-02] MEDS ORDERED: ONDANSETRON 2MG/ML, 2ML ONE (16:34)
[2021-01-02 16:51] LABS: MICROSCOPIC INDICATED
[2021-01-02] MEDS ORDERED: ONDANSETRON 2MG/ML, 2ML IVPush ONE (17:00)
--- NOTE | 2021-01-02 17:30 | NUR ---
PT RESTING IN BED, VSS, NADN, PT UP FOR RECHECK.
--- NOTE | 2021-01-02 17:33 | NUR ---
DR. GILMORE TO BEDSIDE TO DISCUSS RESULTS.
[2021-01-02 18:34] VITALS: BP 122/87
--- NOTE | 2021-01-02 18:36 | NUR ---
Patient given discharge instructions and they have confirmed that they understand the instructions. Patient ambulatory with steady gait. NAD, all questions answered appropriately, denies additional needs at this time. No personal belongings left in room after discharge.
== END 2021-01-02 18:36 | disposition home or self-care (01) ==
LOC: ED 15:26
DX: R07.89 Other chest pain (principal); I44.7 Left bundle-branch block, unspecified; R11.2 Nausea with vomiting, unspecified; I11.0 Hypertensive heart disease with heart failure; I50.9 Heart failure, unspecified; G43.909 Migraine, unspecified, not intractable, without status migrainosus; Z86.73 Personal history of transient ischemic attack (TIA), and cerebral infarction without residual deficits
CPT/HCPCS: 36415; 71045; 80053; 81001; 84484; 84703; 85025; 85379; 85610; 87086; 93005; 96374; 96375; 99285; J2270; J2405